=== PATIENT | female | born 1950 | race Caucasian/White ===

== ENCOUNTER 2018-06-18 15:43 | Inpatient (IN) | payer MEDICARE, OTHER ==
[2018-06-18] MEDS ORDERED: cefTRIAXone 2 GM in SODIUM CHLORIDE 0.9% MINIBAG 100 ML IV STA (16:52)
[2018-06-18] MEDS ORDERED: IOPAMIDOL-300 100 ML VIAL ONE (16:58)
[2018-06-18 17:12] LABS: BASOPHILS # (AUTO) 0.1 10^3/uL (0.0-0.1); BASOPHILS % (AUTO) 0.8 %; EOSINOPHILS % (AUTO) 0.3 %; HGB - HEMOGLOBIN 13.9 g/dL (12.0-16.0); LYMPHOCYTES # (AUTO) 1.5 10^3/uL (1.5-3.5); LYMPHOCYTES % (AUTO) 13.4 %; MEAN CORPUSCULAR HEMOGLOBIN 31.5 pg (27.0-31.0); MEAN CORPUSCULAR HGB CONC 34.3 g/dL (32.0-36.0); MEAN CORPUSCULAR VOLUME 91.7 fL (81.0-99.0); MEAN PLATELET VOLUME 7.8 fL (7.9-10.8); MONOCYTES # (AUTO) 1.1 10^3/uL (0.0-1.0); MONOCYTES % (AUTO) 9.9 %; NEUTROPHILS # (AUTO) 8.3 10^3/uL (1.5-6.6); NEUTROPHILS % (AUTO) 75.6 %; PLT - PLATELET COUNT 264 10^3/uL (130-450); RED BLOOD COUNT 4.41 10^6/uL (4.20-5.40); RED CELL DISTRIBUTION WIDTH 13.1 % (12.0-15.0)
[2018-06-18 17:41] LABS: ALBUMIN 3.9 g/dL (3.2-5.5); ALBUMIN/GLOBULIN RATIO 1.1 (1.0-2.2); CALCIUM 8.9 mg/dL (8.5-10.3); CREATININE 0.9 mg/dL (0.4-1.0); TOTAL PROTEIN 7.4 g/dL (6.7-8.2)
[2018-06-18] MEDS ORDERED: IOPAMIDOL-300 100 ML VIAL IVP ONE ×2 (18:01→19:59)
--- NOTE | 2018-06-18 18:24 | CT Report ---
Reason: swelling facial tracking into the neck Procedure Date: 06/18/2018 Accession Number: [id number] / [id number] Procedure: CT - Neck Soft Tissue W/ CPT Code: FULL RESULT: eXAM: CT NECK WITH CONTRAST COMPARISON: None. CLINICAL HISTORY: Right-sided facial swelling.Swelling tracks into the neck. TECHNIQUE: Axial images were acquired through the neck after intravenous administration of Isovue-300 , 80 mL. Coronal and Sagittal reconstructions are created from source data. In accordance with CT protocol optimization, one or more of the following dose reduction techniques were utilized for this exam: automated exposure control, adjustment of mA and/or KV based on patient size, or use of iterative reconstructive technique. FINDINGS: Visualized intracranial contents shows no masses. Ventricular size is normal. No intraorbital abnormalities identified. Mastoids are clear. Paranasal sinuses are unremarkable. Temporomandibular joints are normally located. Zygomatic arches are intact. Parotid glands are unremarkable. The right submandibular gland is somewhat enlarged appearing, likely reactive. There is an abscess adjacent to the body/angle of the mandible on the right (3, 77), measuring up to approximately 2.7 x 0.9 cm. It appears to originate from the tooth roots of the right second mandibular molar, best demonstrated on series 6 image 57. Notably, there is mass effect, floor of mouth, and inflammation extending into the floor of mouth, with slight leftward displacement of the airway and slight decreased airway caliber. No retropharyngeal fluid. Stranding in the soft tissue adjacent to the abscess is presumed to reflect reactive change or cellulitis. Cervical lymph nodes are prominent, presumably reactive. Visualized right upper chest shows no pulmonary nodules or masses or masses. No pneumothorax. Visualized left upper chest shows no pulmonary nodules or masses. No pneumothorax. Visualized upper mediastinum is unremarkable. IMPRESSION: Findings most concordant with a 2.7 x 0.9 cm right-sided odontogenic abscess, following the margin of the right mandibular body/angle, it is predominantly at the lingual surface. Abscess appears to originate at the tooth roots of the right second mandibular molar. There is inflammation extending into the floor of mouth, with leftward deviation of the oropharyngeal airway and slight decreased airway caliber.
[2018-06-18] MEDS ORDERED: DEXAMETHASONE 10 MG/ML VIAL IVP STA (18:37)
--- NOTE | 2018-06-18 18:43 | ED Physician Documentation ---
PD HPI HEENT - Stated complaint Stated Complaint: FACE SWELLING - Chief complaint Chief Complaint: Heent - History obtained from History obtained from: Patient - Additional information Additional information: 67-year-old female presents the emergency department with increasing facial swelling, intraoral pain and facial redness. Symptoms are described as severe. The patient's pain started with dental pain and the patient was started on steroids last week and finished the tapering pack. The patient's symptoms progressed and she was started on clindamycin and has been on clindamycin for 48 hours. The patient's intraoral pain has decreased but the patient reports increased facial swelling and redness. No relieving factors. No other associated symptoms. Review of Systems Constitutional: reports: Chills. denies: Fever, Fatigue Eyes: denies: Loss of vision Ears: denies: Ear pain, Tinnitus/ringing Nose: denies: Congestion Throat: reports: Dental pain / toothache Cardiac: denies: Chest pain / pressure Respiratory: denies: Dyspnea GI: denies: Abdominal Pain Skin: reports: Rash Musculoskeletal: reports: Neck pain Neurologic: denies: Generalized weakness Immunocompromised: denies: Chemotherapy PD PAST MEDICAL HISTORY - Past Medical History Past Medical History: No - Allergies Allergies/Adverse Reactions: Allergies Allergy/AdvReac Type Severity Reaction Status Date / Time amoxicillin Allergy Hives Verified 06/18/18 16:13 fluconazole Allergy Hives Verified 06/18/18 16:13 nitrofurantoin Allergy Hives Verified 06/18/18 16:13 [From Macrodantin] Sulfa (Sulfonamide Allergy Hives Verified 06/18/18 16:13 Antibiotics) - Social History Does the pt smoke?: No Smoking Status: Never smoker PD ED PE NORMAL - General General: Alert and oriented X 3, No acute distress - HEENT HEENT: Atraumatic, PERRL, EOMI - Neck Neck: Other (No stridor) - Cardiac Cardiac: RRR, Strong equal pulses - Respiratory Respiratory: No respiratory distress, Clear bilaterally - Abdomen Abdomen: Normal bowel sounds - Extremities Extremities: No deformity - Neuro Neuro: Alert and oriented X 3, Normal speech - Psych Psych: Normal mood PD ED PE EXPANDED - HEENT HEENT Visual: 1 - abscess (The patient has significant swelling and erythema which tracks down onto her anterior neck. The patient's tongue is enlarged. The patient has moist mucous membranes. The posterior pharynx is nonedematous. There is no stridor. The patient's protecting her airway and breathing comfortably on room air) Results - Vitals Vitals: Vital Signs - 24 hr 06/18/18 06/18/18 16:08 18:55 Temperature 36.8 C 36.8 C Heart Rate 88 75 Respiratory 18 16 Rate Blood Pressure 131/107 H 158/77 H O2 Saturation 98 97 Oxygen O2 Source Room air - Labs Labs: Laboratory Tests 06/18/18 06/18/18 06/18/18 17:05 17:05 17:05 WBC 11.0 H RBC 4.41 Hgb 13.9 Hct 40.5 MCV 91.7 MCH 31.5 H MCHC 34.3 RDW 13.1 Plt Count 264 MPV 7.8 L Neut # (Auto) 8.3 H Lymph # (Auto) 1.5 [place] # (Auto) 1.1 H Eos # (Auto) 0.0 Baso # (Auto) 0.1 Absolute Nucleated RBC 0.00 Nucleated RBC % 0.0 Sodium 134 L Potassium 3.5 Chloride 97 L Carbon Dioxide 26 Anion Gap 11.0 BUN 26 H Creatinine 0.9 Estimated GFR (MDRD) 63 L Glucose 101 H Lactic Acid 0.6 Calcium 8.9 Total Bilirubin 1.0 AST 15 ALT 18 Alkaline Phosphatase 66 Total Protein 7.4 Albumin 3.9 Globulin 3.5 Albumin/Globulin Ratio 1.1 Lipase 35 - Rads (name of study) CT neck Radiology: Final report received (Findings most concordant with a 2.7 x 0.9 cm right-sided odontogenic abscess, following the margin of the right mandibular body/angle, it is predominantly at the lingual surface. Abscess appears to originate at the tooth roots of the right second mandibular molar. There is inflammation extending into the floor of mouth, with leftward deviation of the oropharyngeal airway and slight decreased airway caliber. ) PD MEDICAL DECISION MAKING - ED course ED course: The case discussed with the oral surgeon Dr. Durham Who agrees to perform a incision and drainage to manage the patient's acute facial abscess. The case is discussed with the hospitalist Dr. Piña who accepts the patient onto her service. The findings and plan were discussed the patient who understand and agree to plan - Sepsis Event Vital Signs: Vital Signs - 24 hr 06/18/18 06/18/18 16:08 18:55 Temperature 36.8 C 36.8 C Heart Rate 88 75 Respiratory 18 16 Rate Blood Pressure 131/107 H 158/77 H O2 Saturation 98 97 Oxygen O2 Source Room air Departure - Departure Disposition: ED Transfer to [facility] Clinical Impression: Facial abscess, Failure of outpatient treatment Condition: Fair
--- NOTE | 2018-06-18 19:44 | ANESTHESIA ---
Pre-Anesthesia VS, & Labs - Diagnosis neck abscess - Procedure incision and drainage of neck abscess Vital Signs: Temp Pulse Resp BP Pulse Ox 36.8 C 75 16 158/77 H 97 06/18/18 18:55 06/18/18 18:55 06/18/18 18:55 06/18/18 18:55 06/18/18 18:55 Height 5 ft 5 in Weight (kg) 81.647 kg Body Mass Index 29.9 - Lab Results Fish Bones: 06/18/18 17:05 06/18/18 17:05 Home Medications and Allergies Allergies/Adverse Reactions: Allergies Allergy/AdvReac Type Severity Reaction Status Date / Time amoxicillin Allergy Hives Verified 06/18/18 16:13 fluconazole Allergy Hives Verified 06/18/18 16:13 nitrofurantoin Allergy Hives Verified 06/18/18 16:13 [From Macrodantin] Sulfa (Sulfonamide Allergy Hives Verified 06/18/18 16:13 Antibiotics) Anes History & Medical History - Medical History Smoking Status: Never smoker
--- NOTE | 2018-06-18 20:05 | ANESTHESIA ---
Pre-Anesthesia VS, & Labs - Diagnosis neck abscess - Procedure incision and drainage of neck abscess Vital Signs: Temp Pulse Resp BP Pulse Ox 36.8 C 75 16 158/77 H 97 06/18/18 18:55 06/18/18 18:55 06/18/18 18:55 06/18/18 18:55 06/18/18 18:55 Height 5 ft 5 in Weight (kg) 81.647 kg Body Mass Index 29.9 - NPO >8 hours, Other (h2o four hour ago) - Is Patient ?: Not Applicable - Lab Results Fish Bones: 06/18/18 17:05 06/18/18 17:05 Home Medications and Allergies Allergies/Adverse Reactions: Allergies Allergy/AdvReac Type Severity Reaction Status Date / Time amoxicillin Allergy Hives Verified 06/18/18 16:13 fluconazole Allergy Hives Verified 06/18/18 16:13 nitrofurantoin Allergy Hives Verified 06/18/18 16:13 [From Macrodantin] Sulfa (Sulfonamide Allergy Hives Verified 06/18/18 16:13 Antibiotics) Anes History & Medical History - Anesthetic History Anesthesia Complications: reports: No previous complications Family history of Anesthesia Complications: Denies Family history of Malignant Hyperthermia: Denies - Medical History Cardiovascular: reports: None Pulmonary: reports: None Gastrointestinal: reports: None Urinary: reports: None Neuro: reports: None Musculoskeletal: reports: None Endocrine/Autoimmune: reports: None Blood Disorders: reports: None Skin: reports: Eczema Smoking Status: Never smoker Psychosocial: reports: Alcohol - Surgical History Eyes Ears Nose Throat (EENT): Tonsil/Adenoidectomy Gynecologic: section Exam General: Alert, Oriented x3, Cooperative, No acute distress Dental: Other (crowns) Mouth Openin Fingerbreadth (FB) Neck Mobility: Reduced (crowns) Mallampati classification: IV Thyromental Distance: 4-6 cm Respiratory: Lungs clear, Normal breath sounds, No respiratory distress, No accessory muscle use Cardiovascular: Regular rate, Normal S1, Normal S2, No murmurs Mental/Cognitive Status: Alert/Oriented X3, Normal for patient Cognitive Status: Within normal limits Plan Anesthesia Type: General Consent for Procedure(s) Verified and Reviewed: Yes Code Status: Attempt Resuscitation ASA classification: 2-Mild systemic disease Is this case an emergency?: Yes
[2018-06-18] MEDS ORDERED: CHLORHEXIDINE GLUCONATE 15 ML UDC PO ONE (20:09)
[2018-06-18] MEDS ORDERED: LIDOCAINE MPF 2%-EPI 1:200000 20 ML VIAL ONE (20:16)
[2018-06-18] MEDS ORDERED: LIDOCAINE MPF 2%-EPI 1:200000 20 ML VIAL SUBQ ONE ×3 (20:19)
[2018-06-18] MEDS ORDERED: ONDANSETRON 4 MG/2 ML VIAL IVP PRN (20:43)
[2018-06-18] MEDS ORDERED: HYDROcod/ACETAM 5/325 MG TABLET PO PRN (20:43)
[2018-06-18] MEDS ORDERED: ACETAMINOPHEN 325 MG TABLET PO PRN (20:43)
[2018-06-18] MEDS ORDERED: MORPHINE 2 MG/ML SYRINGE IVP PRN (20:43)
[2018-06-18] MEDS ORDERED: KETOROLAC 15 MG/ML VIAL IVP PRN (20:45)
--- NOTE | 2018-06-18 20:51 | PROVIDER PROGRESS NOTE ---
Subjective - Prog Note Date Prog Note Date: 06/18/18 Prog Note Time: 20:45 - Subjective Subjective: Brief Consult Note A: 67 yo F w/ R submandibular and sublingual space abscess 2/2 necrotic tooth # 31. - WBC 11 - failed OP abx - pen allergy - given 2g rocefin, tolerated well. - CT: 3 cm abscess, moderate airway deviation, mild efacement and narrowing P: I&D R neck and removal of tooth #31 in OR tonight - add flagyl to ceftriaxone for anaerobic coverage - monitor for improvement overnight. D/c tomorrow if impoving. Drain care: Drain to gravity. Keep covered with clean gauze. Likely d/c tomorrow. - soft diet after surgery - elevate HOB - call immediately if respiratory distress. [phone]. Objective - Vital Signs/Intake & Output Vital Signs: Vital Signs x48h Temp Pulse Resp BP Pulse Ox 06/18/18 18:55 36.8 C 75 16 158/77 H 97 06/18/18 16:08 36.8 C 88 18 131/107 H 98 Intake & Output: Intake & Output 06/15/18 06/16/18 06/17/18 06/18/18 23:59 23:59 23:59 23:59 Intake Total 100 Balance 100 - Lab Results Fish Bones: 06/18/18 17:05 06/18/18 17:05 Other Labs: Lab Results x24hrs 06/18/18 06/18/18 06/18/18 Range/Units 17:05 17:05 17:05 WBC 11.0 H (4.8-10.8) x10^3/uL RBC 4.41 (4.20-5.40) 10^6/uL Hgb 13.9 (12.0-16.0) g/dL Hct 40.5 (37.0-47.0) % MCV 91.7 (81.0-99.0) fL MCH 31.5 H (27.0-31.0) pg MCHC 34.3 (32.0-36.0) g/dL RDW 13.1 (12.0-15.0) % Plt Count 264 (130-450) 10^3/uL MPV 7.8 L (7.9-10.8) fL Neut # (Auto) 8.3 H (1.5-6.6) 10^3/uL Lymph # (Auto) 1.5 (1.5-3.5) 10^3/uL Cross # (Auto) 1.1 H (0.0-1.0) 10^3/uL Eos # (Auto) 0.0 (0.0-0.7) 10^3/uL Baso # (Auto) 0.1 (0.0-0.1) 10^3/uL Absolute Nucleated RBC 0.00 x10^3/uL Nucleated RBC % 0.0 /100WBC Sodium 134 L (135-145) mmol/L Potassium 3.5 (3.5-5.0) mmol/L Chloride 97 L (101-111) mmol/L Carbon Dioxide 26 (21-32) mmol/L Anion Gap 11.0 (6-13) BUN 26 H (6-20) mg/dL Creatinine 0.9 (0.4-1.0) mg/dL Estimated GFR (MDRD) 63 L (>89) Glucose 101 H (70-100) mg/dL Lactic Acid 0.6 (0.5-2.2) mmol/L Calcium 8.9 (8.5-10.3) mg/dL Total Bilirubin 1.0 (0.2-1.0) mg/dL AST 15 (10-42) IU/L ALT 18 (10-60) IU/L Alkaline Phosphatase 66 (42-121) IU/L Total Protein 7.4 (6.7-8.2) g/dL Albumin 3.9 (3.2-5.5) g/dL Globulin 3.5 (2.1-4.2) g/dL Albumin/Globulin Ratio 1.1 (1.0-2.2) Lipase 35 (22-51) U/L
[2018-06-18] MEDS ORDERED: LIDOCAINE-MPF 2% 5 ML VIAL IM ONE (21:30)
[2018-06-18] MEDS ORDERED: ONDANSETRON 4 MG/2 ML VIAL IVP ONE (21:30)
[2018-06-18] MEDS ORDERED: LACTATED RINGERS 1,000 ML IV ONE ×4 (21:30→22:21)
[2018-06-18] MEDS ORDERED: KETOROLAC 30 MG/ML VIAL IVP ONE (21:30)
[2018-06-18] MEDS ORDERED: ROCURONIUM 50 MG/5 ML VIAL IVP ONE (21:30)
[2018-06-18] MEDS ORDERED: PROPOFOL 200 MG/20 ML VIAL IVP ONE (21:30)
[2018-06-18] MEDS ORDERED: fentaNYL 100 MCG/2 ML VIAL IVP ONE (21:30)
[2018-06-18] MEDS ORDERED: ACETAMINOPHEN 1,000 MG/100 ML 100 ML IV ONE (21:58)
--- NOTE | 2018-06-18 22:04 | PROCEDURE REPORT ---
Hospitalist Procedure Note - Procedure Note Procedure Note: Brief op note Preoperative Dx: R submandibular and sublingual space abscess 2/2 necrotic tooth #31 Postoperative dx: same Procedure performed: 1. extraoral incision and drainage of the right submandibular and sublingual spaces 2. removal of tooth #31 Surgeon: Jasen Durham DDS Anesthesia: GA via OETT Anesthesiologist: Anibal Tan MD EBL: 25 mL Fluids: 700 mL crystaloid drains/packs/catheters: /" harley R neck Findings: Significant amount of malodorous purulence encountered Please see dictated note for details Complications: none Drain care: to gravity. Keep gauze clean, change at least BID. Remove gauze from mouth in one hour. Replace if brisk bleeding. Please call with any questions [phone] Jasen Durham DDS
[2018-06-18] MEDS: fentaNYL 100 MCG/2 ML VIAL ONE ×2 (22:08→22:10)
[2018-06-18] MEDS ORDERED: HYDROmorphone 0.5 MG/0.5 ML SYRINGE ONE (22:15)
[2018-06-18] MEDS: D5NS W/20 MEQ KCL 1,000 ML IV SCH (23:04)
[2018-06-18] MEDS: metroNIDAZOLE 500 MG/100 ML 500 MG/100 ML BAG IV SCH (23:05)
[2018-06-18] MEDS: SODIUM CHLORIDE FLUSH 0.9% 10 ML SYRINGE IVP SCH (23:30)
--- NOTE | 2018-06-19 01:37 | CONSULTATION NOTE ---
DATE OF SERVICE: 06/18/2018 Physician: Jasen Durham DDAyo REASON FOR CONSULTATION: Right facial swelling and pain. REQUESTING PHYSICIAN: Dr. Oh Stahl. CHIEF COMPLAINT: Right facial swelling and pain. HISTORY OF PRESENT ILLNESS: The patient is a 67-year-old female who, 11 days ago, went to a dentist because she was having pain in her right mandible. The dentist evaluated her to have a cracked tooth #31 and gave her a Medrol Dosepak. She took the Medrol Dosepak and she was feeling better for a cou ple of days until finishing the Medrol Dosepak, when suddenly she experienced a rapid increase in yaron n and swelling. She tried to sit it out, and she was traveling at the time, being out of town and vi siting here in [facility]. She ended up seeing a local dentist named Steph Sheth on Thursday. Dr. Sheth helped her by giving her a prescription for clindamycin. And since Thursday, she has been taking 300 mg of clindamycin four times a day. However, she has continued to worsen. Her trismus h as been worsening, her pain has been worsening. She has experienced episodes of dysphagia, episodes of globus. She denies any voice change and she tonight became so severe that she presented to the em ergency room. In the ER, a CT scan was taken, demonstrating a 3 cm abscess in the right submandibula r and sublingual spaces. OMFS was consulted for evaluation and management of this abscess. REVIEW OF SYSTEMS: A 14-point review of systems was completed and found to be negative except as not ed above in the HPI. PAST MEDICAL HISTORY: Denies any medical problems. MEDICATIONS: Denies medications. PAST SURGICAL HISTORY: Two sections and a tonsillectomy and adenoidectomy as a child. SOCIAL HISTORY: Drinks a glass of wine daily. Otherwise, negative. ALLERGIES: SULFA AND AMOXICILLIN. FAMILY HISTORY: Uncle had diabetes mellitus. Father had coronary artery disease. PHYSICAL EXAMINATION GENERAL: Alert and oriented, in no acute distress, in good spirits. HEENT: Head normocephalic, atraumatic. Eyes: PERRL. EOMI. VITAL SIGNS: Temperature 36.8 degrees Celsius, pulse 75, respiratory rate 16, blood pressure 158/77, saturating at 97% on room air. MOUTH: Mouth opening limited to about 15 mm. As such, oral examination is difficult, but the floor of the mouth is only mildly elevated and tender. The tongue is not elevated. Uvula and the lateral pharyngeal space cannot be visualized. Her voice sounds normal. The right buccal space is tender an d swollen. Tooth #31 is tender and is not mobile. NECK: There is indurated swelling and erythema of the right submandibular space extending to the mid line and pretty much passing the midline and just barely reaching over into the left submandibular sp gianna as well. The erythema extends inferiorly about to the point of the thyroid cartilage, but no far ther inferior. CHEST: Symmetric rise. Nonlabored respirations. HEART: Regular rate and rhythm. ABDOMEN: Soft, nontender, nondistended. EXTREMITIES: Good strength. Full range of motion. INTEGUMENT: Clean, dry and intact with the exception of erythema and tenderness on the right submand ibular space area. NEUROLOGIC: Cranial nerves II-XII intact. PSYCHIATRIC: Appropriate mood and affect. IMAGING: A CT soft tissue neck with contrast was reviewed. It demonstrates a 3 cm abscess intimatel y associated with the inferior, mostly medial, and some of the lateral aspect of the right mandible. It is at most about 1 cm wide, but it pretty much encompasses the right body of the mandible. It love s causing effacement of the airway, deviation of the airway to the contralateral side and mild narrow ing of the airway. It is a unilocular abscess and it has very distinct borders. LABORATORY RESULTS: White blood cell count 11, hemoglobin 14, platelets 264. ASSESSMENT: This is a 67-year-old female with a right submandibular and sublingual space abscess sec ondary to necrotic tooth #31. White blood cell count 11. Failed outpatient antibiotics. She has a PENICILLIN ALLERGY. She was given 2 grams of Rocephin in the emergency room, which she tolerated wel l. The CT demonstrated a 3 cm abscess and moderate airway deviation and mild effacement and narrowin g. PLAN 1. We anticipate an incision and drainage of the right neck, the right submandibular and sublingua l spaces as well as the buccal space and removal of tooth #31 in the operating room tonight. 2. Add Flagyl to the ceftriaxone for anaerobic coverage. 3. Monitor for improvement overnight, likely discontinue tomorrow if improving. 4. Drain care. Drain to gravity, keep covered with a clean gauze, likely discontinue tomorrow. 5. Soft diet after surgery. 6. Elevate head of bed. 7. Please call immediately if the patient experiences respiratory distress overnight. My cell poncho ne number is [phone]. TD: 06/18/2018 21:10
--- NOTE | 2018-06-19 03:17 | HISTORY & PHYSICAL EXAMINATION ---
DATE OF SERVICE: 06/18/2018 Physician: Kesha Piña MD CHIEF COMPLAINT: Right-sided facial pain. HISTORY OF PRESENT ILLNESS: Patient is a 67-year-old, white female with no past medical history, taking no outpatient medications except for vitamins. She is originally from [place] and recently moved to [place]. 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 She arrived a few days ago. Prior to leaving [place] about 2 weeks ago, she developed jaw pain, felt that she had a tooth problem, and went to see a dentist. That happened more than a week ago and she was given a 6-day steroid taper. She was told that one of her molars on the right side was broken. At that time, she did not receive antibiotic. She took the steroid, which decreased her pain and inflammation; however, immediately on the sixth day when she stopped taking the steroid, her symptoms got much worse and out of control. At that time, she was already here on [facility]. She noted extreme swelling of the right side of her face extending down on her neck. The area was hot and red. She had unbearable pain and she could hardly open her mouth. She went to see a local dentist 3 days ago and she was given clindamycin at that time. Subsequently, her symptoms continued to get worse and she developed a sizable, large abscess on the right side of her face, extending down on her neck. On the evening of June 18, she came to the ER and was evaluated by the ER physician, Dr. Sathl. She underwent CT scan of the head and neck, which showed right-sided mandibular and submandibular abscess originating from a tooth. Dr. Stahl discussed the case with the covering oral surgeon, Dr. Durham , who immediately took the patient to the OR for surgical drainage. Subsequently, the medical service was requested to admit this patient for IV antibiotics. Besides the dental abscess, the CT scan described mild airway narrowing related to this abscess. Reviewing laboratories, white blood cell count was 11, BUN 26. Laboratories were otherwise unremarkable. During the ER stay, vital signs were stable. The patient was afebrile and heart rate was in the 70s. Blood pressure was 146/75, oxygen saturation 98% on room air with respiratory rate of 18. PAST MEDICAL HISTORY: No significant chronic medical problem. Patient mentioned that her primary care physician was watching her blood pressure, as it was borderline elevated at times, but she never required medication. OUTPATIENT MEDICATIONS: No prescription medications taken. The patient takes vitamin supplements. Primary care physician is still in [place]. No outpatient care in [facility]. SOCIAL HISTORY: The patient is a nonsmoker. 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 FAMILY HISTORY: Positive for heart disease in the father. REVIEW OF SYSTEMS: Please see pertinent positives listed above at history of present illness. The patient did not report additional complaints on the 12- point review. Diagnostic workup reviewed per ER record. PHYSICAL EXAMINATION VITAL SIGNS: Listed above at history of present illness. GENERAL: The patient is a well-developed female who was not in distress. MUSCULOSKELETAL: Large, hard, tender collection on the right side of the face going down on the neck, being centered around the mandible, extending up on the face, up to the maxillary bone. CARDIOVASCULAR: S1, S2. Regular. No pathologic murmur. RESPIRATORY: Clear to auscultation bilaterally without wheezes or crackles. SKIN: Erythema on the right side of the face with a large abscess. Otherwise, normal skin. LYMPHATIC: No lymphedema. ABDOMEN: Soft, benign, nontender. Bowel sounds present. NEUROLOGIC: Alert, oriented, nonfocal. PSYCHIATRIC: Cooperative. ASSESSMENT AND PLAN/ACTIVE ISSUES/DIAGNOSES 1. Right-sided facial abscess originating from a tooth/dental abscess. 2. Failed outpatient antibiotic therapy. 3. Impending airway compromise if untreated. 4. Borderline hypertension. PLAN AND ORDERS 1. Patient is getting admitted as inpatient. She will require at least a couple of days of antibiotic treatment IV. She has multiple antibiotic allergies; therefore, ceftriaxone was chosen. Oral surgeon, Dr. Durham, agreed to the antibiotic choice. Following surgery, the patient will likely be n.p.o. and we will advance her diet per oral surgeon's recommendation. 2. Deep venous thrombosis prophylaxis with Venodyne boots. If patient remains in the hospital for more than 24 hours, then pharmacologic prophylaxis can be given. For now, just following surgery, I will not start heparin. 3. Gastrointestinal prophylaxis. 4. IV antibiotics, IV hydration. 5. FULL CODE. 6. Pain control, symptom control. 7. Time spent with the care of this patient was 50 minutes. ATTESTATION: I certify that the reasonable expectation for this patient is to be hospitalized for more than 48 hours; however, to get discharged within 96 hours. Therefore, she is admitted as inpatient, requiring IV antibiotic treatment and airway monitoring. TD: 06/18/2018 21:17 HANY
[2018-06-19] MEDS: metroNIDAZOLE 500 MG/100 ML 500 MG/100 ML BAG IV SCH ×2 (06:25→15:29)
[2018-06-19] MEDS ORDERED: PANTOPRAZOLE 40 MG TABLET PO SCH (07:00)
--- NOTE | 2018-06-19 07:55 | OPERATIVE REPORT ---
DATE OF SERVICE: 06/18/2018 Physician: Jasen Durham DDS PREOPERATIVE DIAGNOSIS: Right submandibular and sublingual space abscess secondary to necrotic tooth #31. POSTOPERATIVE DIAGNOSIS: Right submandibular and sublingual space abscess secondary to necrotic tooth #31. NAME OF PROCEDURE: Extraoral incision and drainage of the right submandibular and sublingual spaces with removal of tooth #31. SURGEON: Jasen Durham DDS ANESTHESIA: General anesthesia via oral endotracheal intubation. ANESTHESIOLOGIST: Anibal Tan LOCATION OF SERVICE: Main operating room. DRAINS, PACKS, CATHETERS: A 1/4-inch Phoenix drain was placed into the right neck. ESTIMATED BLOOD LOSS: 25 mL FLUIDS ADMINISTERED: 700 mL of crystalloid. COMPLICATIONS: None. INDICATIONS FOR PROCEDURE: This is a 67-year-old female who presented to the emergency room with right facial swelling and pain. Clinical and radiographic examination was consistent with a right submandibular and sublingual space abscess secondary to necrotic tooth #31. It was decided that incision and drainage of this abscess was necessary. The risks, benefits and alternatives of this plan, along with removal of tooth #31, which was also necessary, were discussed with the patient including pain, swelling, bleeding, infection, damage to adjacent teeth, need for further surgeries, recurrence of the infection, spread of the infection deeper into the neck, need for prolonged hospitalization and/or prolonged intubation, scarring, nerve damage with numbness, paresthesia and/or paralysis of the areas and muscles of the face. Adequate time was given to answer all questions and informed consent was obtained. DESCRIPTION OF PROCEDURE: The patient was brought to the main operating room and placed in a supine position on the operating table. General anesthesia was induced by the anesthesia team and the area was secured with an oral endotracheal tube taped to the left side of the mouth. The eyes were taped. The pressure points were padded and checked. A formal timeout was executed. The patient was prepped and draped in the standard sterile fashion for an intraoral surgical procedure. Local anesthesia was achieved with 2% lidocaine with 1:100,000 epinephrine x4 mL in the right neck and then a right GALA nerve block. A throat pack was placed. The mouth was cleansed with chlorhexidine mouth rinse. Attention was directed to the right neck. A 1.5 cm incision was made parallel to the skin tension lines and blunt dissection was then performed with a curved Mindi hemostat down to the inferior border of the mandible. A significant amount of purulence was encountered. It was brown with black speckles. It was extremely pungent. The entire abscess cavity was explored with a curved Mindi in both the sublingual and submandibular spaces, going lingually as well as buccally to the mandible, and then the site was irrigated with 400 mL of sterile saline solution. A 1/4-inch Phoenix drain was placed into the abscess cavity through the neck and secured to the neck with a 2-0 silk suture. Attention was directed to the right mandible, to tooth #31. A distal hockey- stick incision was made with a sulcular incision. A buccal full-thickness flap was elevated. Bone was removed around the tooth, and the tooth was sectioned and removed completely. The site was curetted and irrigated. The bone was smoothed. The site was irrigated thoroughly. It was left open to allow for continued drainage. Gauze was placed in the site. The patient's mouth was rinsed free of debris. The throat pack was removed. Care of the patient was returned to the anesthesia team for uneventful extubation, emergence from anesthesia and transfer to the PACU. At the time of the patient's delivery to the PACU, the patient was in stable condition. TD: 06/18/2018 22:11 HANY
[2018-06-19] MEDS ORDERED: POLYETHYLENE GLYCOL 3350 17 GM PACKET PO SCH (09:00)
[2018-06-19] MEDS: SODIUM CHLORIDE FLUSH 0.9% 10 ML SYRINGE IVP SCH ×2 (09:57→16:40)
--- NOTE | 2018-06-19 10:22 | PROVIDER PROGRESS NOTE ---
Subjective - Prog Note Date Prog Note Date: 06/19/18 Prog Note Time: 10:20 - Subjective Pt reports feeling: Improved Subjective: Arely states that her face is quite comfortable as she is now post-op with a drain in her right neck and has not required any pain medication. She is concerned about a flap of tissue that remains near the chewing surfaces inside her mouth (right buccal area). She denies any concerning, new symptoms including, nausea, vomiting, chest pain, headaches, shortness of breath, edema or a new cough. Objective - Vital Signs/Intake & Output Reviewed Vital Signs: Yes Vital Signs: Vital Signs x48h Temp Pulse Resp BP Pulse Ox 06/19/18 08:45 140/59 H 94 06/19/18 08:00 36.9 C 59 L 19 86/47 L 95 06/19/18 04:15 36.9 C 60 18 125/59 L 95 Intake & Output: Intake & Output 06/16/18 06/17/18 06/18/18 06/19/18 23:59 23:59 23:59 23:59 Intake Total 680 Balance 680 - Objective General Appearance: positive: No acute distress, Alert Eyes Bilateral: positive: Normal inspection, PERRL ENT: positive: ENT inspection nml, No signs of dehydration, Pharyngeal erythema , Oral lesions (post-I & D right lower molar abcess.) Neck: positive: Thyroid nml, Lymphadenopathy (R), Stiff neck, Other (Drain to right neck is intact.) Respiratory: positive: Chest non-tender, No respiratory distress, Breath sounds nml Cardiovascular: positive: Regular rate & rhythm, No murmur, No gallop Peripheral Pulses: 2+ Radial (R), 2+ Radial (L) Abdomen: positive: Non-tender, No organomegaly, Nml bowel sounds, Other (rounded , soft) Back: positive: Nml inspection Skin: positive: Color nml, No rash, Warm, Dry Extremities: positive: Non-tender, Full ROM, Nml appearance, No pedal edema Neurologic/Psychiatric: positive: Oriented x3, CN's nml (2-12), Motor nml, Sensation nml, Mood/affect nml Reflexes: Bicep (R): 4+, Bicep (L): 4+ - Lab Results Fish Bones: 06/18/18 17:06/18/18 17:05 - Diagnostic Imaging Diagnostic Imaging Results: positive: Final report reviewed Diagnostic Imaging Comments: CT NECK WITH CONTRAST IMPRESSION: Findings most concordant with a 2.7 x 0.9 cm right-sided odontogenic abscess, following the margin of the right mandibular body/angle, it is predominantly at the lingual surface. Abscess appears to originate at the tooth roots of the right second mandibular molar. There is inflammation extending into the floor of mouth, with leftward deviation of the oropharyngeal airway and slight decreased airway caliber. ABX Reporting Has patient been on IV antibiotics over the past 48 hours?: Yes Assessment/Plan - Problem List (1) Facial abscess Impression: The patient admits to learning of a "cracked" tooth when she lived in [place] several months ago. She claims that with the recent stress of a new job, and moving, she believes that the added stress has caused her to grind her teeth while sleeping, making the cracked tooth worse. She saw at least 2 dentists. The first dentist put her on oral prednisone. When this steroid taper/course was up the swelling came back, and the infection was more apparent. The second dentist put her on oral antibiotics, but this was not effective, so she presented to the ED. A neck CT confirmed a large mandible abscess involving the suspected cracked tooth. The swelling had slightly displaced the airway. Upon exam today, the patient complained of an extra piece of tissue that was noticed while chewing, and she was worried about harming herself. I made a call to Dr. Durham, to inform him of my inspection in which it appeared to be exactly what the patient described as an extra piece of tissue that was out of place. He will plan to see her later today. Now post op day #1, the patient denies pain, claims to have much less swelling, remains with a drain to her right neck, and has been started on IV Rochepin/IV flagyl as per surgery. I have added a probiotic for prophylaxis, as she had been on prior PO antibiotics. Plan: continue IV treatment, IVFs, slow oral intake, and pain control. (2) Leukocytosis Impression: The patient is found to have an elevated WBC count of >11, and consist of monocytes. This is likely a consequence of the lower cracked molar that developed an abscess and this is considered a healthy response. Plan: Continue recommended IV antibiotic with a transition to oral antibiotics in the next 48 hours. Qualifiers: Leukocytosis type: monocytosis Qualified Code(s): D72.821 - Monocytosis ( symptomatic) (3) Anorexia Impression: The patient admits to severe problems with opening her mouth prior to admission , which then caused acute anorexia. She states that she could not fit a bead from tapioca pudding through her front teeth the swelling was so severe from her right sided facial swelling. Plan: Slowly advance diet as per surgery recommendations, offer protein drinks to promote healing, and offer soft foods. Continue IVFs for fluid support.
[2018-06-19] MEDS: SODIUM CHLORIDE FLUSH 0.9% 10 ML SYRINGE IVP PRN ×2 (13:33→15:32)
[2018-06-19] MEDS: D5NS W/20 MEQ KCL 1,000 ML IV SCH (13:33)
[2018-06-19] MEDS: SACCHAROMYCES BOULARDII 250 MG CAPSULE PO SCH ×2 (15:33→16:40)
[2018-06-19] MEDS ORDERED: cefTRIAXone 1 GM in SODIUM CHLORIDE 0.9% MINIBAG 100 ML IV SCH (18:00)
--- NOTE | 2018-06-19 18:33 | PROVIDER PROGRESS NOTE ---
Subjective - Prog Note Date Prog Note Date: 06/19/18 Prog Note Time: 18:31 - Subjective Pt reports feeling: Improved (minimal pain med requirements. Ambulating and voiding w/out difficulty. Good PO intake. Denies globus, dysphagia, dyspnea) Objective - Vital Signs/Intake & Output Reviewed Vital Signs: Yes Vital Signs: Vital Signs x48h Temp Pulse Resp BP Pulse Ox 06/19/18 15:54 36.9 C 59 L 16 148/69 H 97 Intake & Output: Intake & Output 06/16/18 06/17/18 06/18/18 06/19/18 23:59 23:59 23:59 23:59 Intake Total 2220 Balance 2220 - Objective General Appearance: positive: No acute distress, Alert Eyes Bilateral: positive: PERRL, EOMI ENT: positive: Other (Mouth opening 20 mm. Mildly improved since yesterday. Large clot over site #31. No bleeding. Uvula midline, no lateraly pharyngeal swelling.) Neck: positive: Other (R submandibular space remains indurated, but mildly improved. Mild erythema. Minimal ttp. Drain intact, mild serosanguinous drainage.) - Lab Results Fish Bones: 06/18/18 17:05 06/18/18 17:05 Assessment/Plan - Problem List (1) Facial abscess Impression: 67 yo F POD #1 s/p EO I&D R submandibular and sublingual spp abscess w/ removal of tooth #31 - improving. Do not expect complete resolution of swelling and pain for two weeks. Plan: OK for d/c to home from [facility] standpoint - for outpatient abx, recommend levaquin 750 x 7 days - f/u in my office: <> [id number]; [place] <> Thursday morning. Call prior to arrival. - OK to remove bulky neck dressing and transition to folded gauze held on by tape - Diet: Mechanical soft diet x 1 week then ADAT - Shower ok, no bath or pool x 2 weeks - Oral hygiene: OK to brush - instructed the patient in jaw stretching exercises 10 times per hour while awake. Appreciate IM assistance. Please feel free to call with any questions. Jasen Durham DDS [phone]
--- NOTE | 2018-06-19 18:56 | Discharge Plan ---
Discharge Plan Disposition: Home, Self Care Condition: Good Prescriptions: HYDROcod/ACETAM 5/325 [[place] 5/325] 1 tab PO Q4HR PRN #20 tablet PRN Reason: Pain 5 to 7 Ciprofloxacin HCl [Cipro] 500 mg PO BID 7 Days #14 tablet Metronidazole [Flagyl] 500 mg PO Q8H 7 Days #21 tablet Saccharomyces Boulardii [Florastor] 250 mg PO BID #60 capsule Diet: Soft Activity Restrictions: No Restrictions Shower Restrictions: No Driving Restrictions: No Weight Bearing: Full Weight Additional Instructions or Follow Up instructions: Plan: OK for d/c to home from [facility] standpoint Continue out patient oral antibiotics for the next 7 days, this has been faxed to your pharmacy. - f/u with Dr. Durham' office: <> [id number]; [place] <> Thursday morning. Call prior to arrival. - OK to remove bulky neck dressing and transition to folded gauze held on by tape - Diet: Mechanical soft diet x 1 week then ADAT - Shower ok, no bath or pool x 2 weeks - Oral hygiene: OK to brush - instructed the patient in jaw stretching exercises 10 times per hour while awake. We also recommend that you follow up with your PCP within one week of this hospital stay. No Smoking: If you smoke, Please STOP! Call for help.
--- NOTE | 2018-06-19 19:10 | DISCHARGE SUMMARY ---
Discharge Summary Admit Date: 06/18/18 Discharge Date: 06/19/18 Discharging Provider: BETHANY Hua Primary Care Provider: Jasen Durham Code Status: Attempt Resuscitation Condition at Discharge: Good Discharge Disposition: 01 Home, Self Care - DIAGNOSES Admission Diagnoses: Cellulitis of face (L03.211) Other specified health status (Z78.9) Other specified respiratory disorders (J98.8) Discharge Diagnoses with Status of Each Condition: Facial abscess (L02.01) new on this admit, stable. Leukocytosis (D72.829) resolved. Anorexia (R63.0) improved. Airway compromise (J98.8) resolved. Failure of outpatient treatment (Z78.9) resolved. - HPI History of Present Illness: Arely Ramos is a 67-year old female with no past medical history and on no prescribed medications. She is originally from [facility] and recently moved to [place], [place]. 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 Prior to leaving [place] about 2 weeks ago, she developed jaw pain, felt that she had a tooth problem, and went to see a dentist. That was about a week ago, and she was given a 6-day steroid taper. She was told that one of her molars on the right side was cracked, and was given no antibiotics. She completed her 6-day steroids, and the next day noticed increased swelling to her right cheek that extended down into her neck. The area was hot and red. She had unbearable pain and went to a local dentist who prescribed Clindamycin orally. She kept getting worse and she presented to the ED with a primary complaint of right facial swelling and an inability to open her mouth. A neck CT confirmed a mandible tooth abscess that protruded into her airway. Oral surgery, Dr. Durham was consulted who plans to perform an I & D with the Hospitalist service to manage her medically. - CONSULTS | PROCEDURES Consultations: Hospitalist to admit/discharge. - HOSPITAL COURSE Hospital Course: 1) Facial abscess The patient admits to learning of a "cracked" tooth when she lived in [place] several months ago. She claims that with the recent stress of a new job, and moving, she believes that the added stress has caused her to grind her teeth while sleeping, making the cracked tooth worse. She saw at least 2 dentists. The first dentist put her on oral prednisone. When this steroid taper/course was up the swelling came back, and the infection was more apparent. The second dentist put her on oral antibiotics, but this was not effective, so she presented to the ED. A neck CT confirmed a large mandible abscess involving the suspected cracked tooth. The swelling had slightly displaced the airway. The patient complained of an extra piece of tissue that was noticed while chewing, and she was worried about harming herself. Dr. Durham was informed and stopped by later in the evening to approve discharge home. The patient had a post op right neck drain, that was removed prior to discharge. She was given IV Rochepin/IV flagyl as per surgery. Ciprofloxacin PO, Flagyl PO, a probiotic and were sent to the pharmacy. She was tolerating PO intake, her pain was controlled and she appeared well. (2) Leukocytosis The patient is found to have an elevated WBC count of >11, and consist of monocytes. This is likely a consequence of the lower cracked molar that developed an abscess and this is considered a healthy response. The patient was given recommended IV antibiotics and transitioned to oral antibiotics up discharge. (3) Anorexia The patient admits to severe problems with opening her mouth prior to admission , which then caused acute anorexia. She states that she could not fit a bead from tapioca pudding through her front teeth the swelling was so severe from her right sided facial swelling. The patient's diet was slowly advanced as per surgery recommendations. She was offered protein drinks to promote healing, and offered soft foods. She was initially continued on IVFs for fluid support. This condition improved and was nearly resolved upon discharge. Disposition: The patient was in stable condition and was discharged home with plans to follow up on Thursday with Dr. Durham. Cultures from abscess obtained during I & D are still pending. - ALLERGIES Allergies/Adverse Reactions: Allergies Allergy/AdvReac Type Severity Reaction Status Date / Time amoxicillin Allergy Hives Verified 06/18/18 16:13 fluconazole Allergy Hives Verified 06/18/18 16:13 nitrofurantoin Allergy Hives Verified 06/18/18 16:13 [From Macrodantin] Sulfa (Sulfonamide Allergy Hives Verified 06/18/18 16:13 Antibiotics) - MEDICATIONS Home Medications: Ambulatory Orders Medication Instructions Recorded Confirmed Calcium Carbonate [Calcium] 600 mg PO BID 06/19/18 06/19/18 Cholecalciferol (Vitamin D3) 2,000 unit PO DAILY 06/19/18 06/19/18 [Vitamin D3] Ciprofloxacin HCl [Cipro] 500 mg PO BID 7 Days #14 tablet 06/19/18 HYDROcod/ACETAM 5/325 [[place] 5/325] 1 tab PO Q4HR PRN #20 tablet 06/19/18 Metronidazole [Flagyl] 500 mg PO Q8H 7 Days #21 tablet 06/19/18 Multivit-Min/FA/Lycopen/Lutein 1 each PO DAILY 06/19/18 06/19/18 [Centravites 50 Plus Tablet] Saccharomyces Boulardii [Florastor] 250 mg PO BID #60 capsule 06/19/18 - PHYSICAL EXAM AT DISCHARGE General Appearance: positive: No acute distress, Alert Eyes Bilateral: positive: Normal inspection, PERRL ENT: positive: Pharyngeal erythema, Oral lesions (post-surgical to right buccal/ cheek) Neck: positive: No JVD, Thyromegaly, Lymphadenopathy (R), Stiff neck, Swelling/ bruising, Other (drain is now removed, with minimal drainage.) Respiratory: positive: Chest non-tender, No respiratory distress, Breath sounds nml Cardiovascular: positive: Regular rate & rhythm, No gallop, Systolic murmur Peripheral Pulses: positive: 1+ Abdomen: positive: Non-tender, No distention Back: positive: Nml inspection Skin: positive: Color nml, No rash, Warm, Dry Extremities: positive: Non-tender, Full ROM, Nml appearance, No pedal edema Neurologic/Psychiatric: positive: Oriented x3, CN's nml (2-12), Motor nml, Sensation nml, Mood/affect nml Reflexes: Bicep (R): 4+, Bicep (L): 4+, Ankle (R): 4+, Ankle (L): 4+ - LABS Result Diagrams: 06/18/18 17:05 06/18/18 17:05 - DIAGNOSTIC IMAGING Diagnostic Imaging Results: Final report reviewed Diagnostic Imaging Results Comments: EXAM: CT NECK WITH CONTRAST IMPRESSION: Findings most concordant with a 2.7 x 0.9 cm right-sided odontogenic abscess, following the margin of the right mandibular body/angle, it is predominantly at the lingual surface. Abscess appears to originate at the tooth roots of the right second mandibular molar. There is inflammation extending into the floor of mouth, with leftward deviation of the oropharyngeal airway and slight decreased airway caliber.
[2018-06-19 19:25] VITALS: BP 167/75
== END 2018-06-19 20:00 | disposition home or self-care (01) | DRG 581 ==
LOC: ED 15:43 → MS2 20:40
PROVIDERS: ADMIT Internal Medicine; ATTEND Nurse Practitioner
PROC: 0CTX0Z0 Resection of Lower Tooth, Single, Open Approach (ICD-10-PCS; 2018-06-18)
PROC: 0W950ZZ Drainage of Lower Jaw, Open Approach (ICD-10-PCS; principal; 2018-06-18 19:41)
DX: L02.01 Cutaneous abscess of face (principal); J98.8 Other specified respiratory disorders; R63.0 Anorexia; Z78.9 Other specified health status; K03.81 Cracked tooth; F45.8 Other somatoform disorders; M27.2 Inflammatory conditions of jaws
CPT/HCPCS: 36415; 70491; 80053; 83605; 83690; 85025; 87040; 96365; 96375; 99283; 99285